=== PATIENT | male | born 1955 | race African-American/Black ===

== ENCOUNTER 2018-11-08 14:02 | Emergency (ER) | payer MEDICAID, OTHER ==
[~2018-11-08] VITALS: Ht 149.9 cm; Wt 65.8 kg
--- NOTE | 2018-11-08 14:20 | NUR ---
ARRIVAL PT ARRIVED TO ER VIA WHEELCHAIR ACCOMPANIED BY [facility] STAFF. STAFF STATES THAT HE WAS STANDING UP FROM HIS WHEELCHAIR AND FELL BACK FLIPPING THE WHEEL CHAIR OVER. PT COMPLAINS OF PAIN TO HEAD, NECK AND RIGHT LEG.
--- NOTE | 2018-11-08 14:32 | ER.PDOC ---
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) Exam Limitations: clinical condition History of Present Illness Initial Comments Pt fell in NH from wheel chair, backward, no LOC, h/o neurosyphillis Occurred: this afternoon Where: other ([place]) Severity: mild Location: occipital Method of Injury: fell Review of Systems Constitutional: no symptoms reported Eyes: no symptoms reported Ears, Nose, Mouth, Throat: no symptoms reported Respiratory: no symptoms reported Cardiovascular: no symptoms reported Gastrointestinal: no symptoms reported Genitourinary: no symptoms reported Musculoskeletal: no symptoms reported Skin: no symptoms reported Psychiatric/Neurological: see HPI Endocrine: no symptoms reported Hematologic/Lymphatic: no symptoms reported Physical Exam General Appearance: Alert, No Apparent Distress, WD/WN Head: No Evidence of Injury Eye: PERRL, EOMI, No nystagmus ENT: Nml external inspection, Pharynx nml Neck: non-tender, painless ROM, trachea midline Cardiovascular/Respiratory: Regular Rate, Rhythm, No M/R/G, Normal Peripheral Pulses, No JVD, Normal Breath Sounds, No Respiratory Distress Gastrointestinal: Normal Bowel Sounds, No Organomegaly, No Pulsatile Mass, Non Tender, Soft Back: Normal Inspection, No CVA Tenderness, No Vertebral Tenderness Extremities: Normal Range of Motion, Non-Tender, Normal Inspection, No Pedal Edema, No Calf Tenderness, Normal Capillary Refill NEURO/PSYCH: Alert, Oriented x3, Cooperative, Interactive, Mood/affect nml Cranial Nerves: Normal Hearing, Normal Speech, PERRL Coordination/Gait: Normal Finger to Nose, Normal Gait Motor/Sensory: No Motor Deficit, No Sensory Deficit, No Pronator Drift, Negative Babinski's Sign Skin: Normal Color, Warm/Dry Lymphatic: No Adenopathy Nancy Coma Score Best Eye Response: (4) Open Spontaneously Best Verbal Response: (5) Oriented Best Motor Response: (6) Obeys Commands Results/Orders Results/Orders Orders - JOHN ARDON MD Ct Head Wo Contrast (11/08/18 14:28) Ct Cervical Spine (11/08/18 14:28) Vital Signs Date Time Temp Pulse Resp B/P (MAP) Pulse Ox O2 Delivery O2 Flow Rate FiO2 11/08/18 14:33 16 11/08/18 14:33 98.6 62 16 121/71 (88) 99 Room Air 98.6 11/08/18 14:26 98.6 62 16 99 Room Air 98.6 11/08/18 14:26 98.6 62 16 98.6 Departure Time of Disposition: 15:12 Disposition: 01 HOME, SELF-CARE Impression: Primary Impression: Head injury Condition: Stable Patient Instructions: Head Injury, Adult, [id number] Referrals: PCP,UNKNOWN (PCP) PRIMARY CARE PROVIDER Duration or Time Spent with Pa: 15 JOHN ARDON MD Nov 08, 2018 14:32
[2018-11-08 14:33] VITALS: BP 121/71
--- NOTE | 2018-11-08 14:50 | DIREP ---
PROCEDURE:CT HEAD OR BRAIN W/O CONTRAST COMPARISON:[facility], CT, CT SPINE CERVICAL W/O, 11/08/2018, 02:40 PM. INDICATIONS:Fall, head and neck injury TECHNIQUE:CT images were created without intravenous contrast. The study was reviewed on brain, subdural and bone windows. FINDINGS: VENTRICLES:Mild ventriculomegaly with mild atrophy. Mild periventricular white matter changes seen which may be secondary to small vessel disease and old aging. CEREBRUM:Normal cerebral morphology with appropriate miller white matter differentiation. No acute infarct, bleed or mass lesion is seen. No acute or chronic epidural, subdural subarachnoid hemorrhage is seen. No edema, midline shift or increased intracranial pressure is seen. No hemorrhagic contusions or intraventricular hemorrhage is seen. CEREBELLUM:Negative. BRAINSTEM:Negative. BASAL CISTERNS:Negative. HEMORRHAGE:No MASS LESION:No ACUTE INFARCT:No SKULL:Minimal soft tissue contusion involving the left frontal scalp as seen on transaxial image number [id number]. No underlying skull fracture is seen. SINUSES:Normal. OTHER:None CONCLUSION:Minimal soft tissue laceration/contusion. No skull fracture is seen. No intracranial bleed is identified. Dictated by: Preston Duarte MD on 11/08/2018 at 02:47 PM
--- NOTE | 2018-11-08 15:07 | DIREP ---
PROCEDURE: CT SPINE CERVICAL W/O COMPARISON:None. INDICATIONS:Fall neck injury FINDINGS: ALIGNMENT:Mild reversal of the normal lower cervical lordosis, probably simply positional. VERTEBRAE:Normal. PARASPINAL AREA:Normal. OTHER:Accessory ossicles at the anterior atlantoaxial joint. CERVICAL DISC LEVELS C2-C3:Normal. C3-C4:Normal. C4-C5:Moderate overgrowth of the right facet joint. C5-C6:Moderate overgrowth of the right facet joint. C6-C7:Mild irregularity of the right facet joint. C7-T1:Normal. CONCLUSION:No fracture demonstrated. Relatively mild degenerative changes of the cervical spine, as detailed above. Dictated by: Kanchan Nguyen III, MD on 11/08/2018 at 03:01 PM
[2018-11-08 15:56] VITALS: BP 121/71
== END 2018-11-08 15:45 | disposition home or self-care (01) ==
LOC: ER 14:02
DX: S09.90XA Unspecified injury of head, initial encounter (principal); W07.XXXA Fall from chair, initial encounter; Y93.89 Activity, other specified; Y92.128 Other place in nursing home as the place of occurrence of the external cause; Y99.8 Other external cause status
CPT/HCPCS: 70450; 72125; 99284